=== PATIENT | female | born 1980 | race Caucasian/White ===

== ENCOUNTER 2024-02-29 06:25 | Day surgery (SDC) | payer OTHER, SELFPAY | END 2024-02-29 08:03 | disposition home or self-care (01) | LOC: GI 06:25 | PROVIDERS: ATTENDING PHYSICIAN Internal Medicine Gastroenterology; FAMILY PHYSICIAN Internal Medicine | DX: Z12.11 Encounter for screening for malignant neoplasm of colon (principal); D12.0 Benign neoplasm of cecum | CPT/HCPCS: 45385; 88305 ==